=== PATIENT | male | born 1960 | race Caucasian/White ===

== ENCOUNTER 2018-02-24 07:53 | Day surgery (SDC) | payer BC ==
[~2018-02-24] VITALS: Ht 175.3 cm; Wt 88.9 kg
[~2018-02-24 07:53] MED LIST: LIPITOR40 MG PO; LO-DOSE ASPIRIN81 M2 PO; PLAVIX75 MG PO; RANEXA500 MG PO
[2018-02-24 08:25] VITALS: BP 199/70
[2018-02-24 15:44] VITALS: BP 111/64
== END 2018-02-24 16:10 | disposition home or self-care (01) ==
LOC: SDC 07:53
PROC: 08QF3ZZ Repair Left Retina, Percutaneous Approach (ICD-10-PCS; principal; 2018-02-24)
PROC: 08B53ZZ Excision of Left Vitreous, Percutaneous Approach (ICD-10-PCS; principal; 2018-02-24)
DX: H33.42 Traction detachment of retina, left eye (principal); I25.10 Atherosclerotic heart disease of native coronary artery without angina pectoris; I10 Essential (primary) hypertension; E78.5 Hyperlipidemia, unspecified; I42.9 Cardiomyopathy, unspecified; F17.210 Nicotine dependence, cigarettes, uncomplicated; Z79.02 Long term (current) use of antithrombotics/antiplatelets; Z79.82 Long term (current) use of aspirin
CPT/HCPCS: J0690; J0713; J2250; J2405; J3010; J3300